=== PATIENT | male | born 1995 | race Hispanic/Latino ===

== ENCOUNTER 2022-11-20 03:39 | Emergency (ER) | payer SELFPAY ==
[2022-11-20] MEDS ORDERED: Lactated Ringer's 2,000 ML ONE (04:07)
[2022-11-20 04:33] LABS: Base Excess-Venous -5.2 mmol/L (-2.0 to 3.0); Bicarbonate (HCO3v) 21.8 mmol/L (22.0-28.0); CO2 Tension (PvCO2) 46.5 mmHg (42.0-51.0); Calcium, Ionized 1.11 mmol/L (1.15-1.33); Chloride 96 mmol/L (98-107); Potassium 5.3 mmol/L (3.5-5.1); Sodium 123 mmol/L (138-145); T. Carbon Dioxide 23.3 mmol/L (22.0-28.0); vO2 Saturation-calc 82.4 % (60.0-85.0)
[2022-11-20 04:39] LABS: #Basophils 0.1 thou/uL (0.0-0.2); #Eosinphils 0.1 thou/uL (0.0-0.7); #Lymphocytes 1.4 thou/uL (1.20-3.40); #Monocytes 0.6 thou/uL (0.11-0.59); %Basophils 1.4 % (0.0-1.0); %Eosinophils 1.3 % (0.0-10.0); %Lymphocytes 19.5 % (21.0-51.0); %Monocytes 8.1 % (0.0-10.0); %Neutrophils 69.7 % (42.0-75.0); Hematocrit 45.4 % (42.0-52.0); Hemoglobin 15.4 g/dL (14.0-18.0); Mean Corpuscular HGB CONC 33.9 g/dL (32.0-36.0); Mean Corpuscular Hemoglobin 33.3 pg (27.0-31.0); Mean Corpuscular Volume 98.1 fl (78.0-98.0); Mean Platelet Volume 8.3 fL (7.4-10.4); Platelet Count 264 10x3/uL (130-400); RBC Distribution Width 11.3 % (11.5-14.5); Red Blood Cell (RBC) Count 4.63 mill/uL (4.70-6.10); White Blood Cell (WBC) Count 7.2 10x3/uL (4.8-10.8)
[2022-11-20 04:43] LABS: ALT (SGPT) 48 U/L (8-55); AST (SGOT) 35 U/L (5-34); Albumin 4.7 g/dL (3.5-5.0); Alkaline Phosphatase 95 U/L (40-110); Anion Gap 23 mmol/L (10-20); BUN (Urea Nitrogen) 21 mg/dL (8.9-20.6); Bilirubin, Total 0.7 mg/dL (0.2-1.2); Calc. Creatinine Clearance 0 mL/min (70-130); Calcium 9.3 mg/dL (7.8-10.44); Carbon Dioxide 19 mmol/L (22-29); Chloride 91 mmol/L (98-107); Estimated GFR 61; Globulin 2.6 g/dL (2.4-3.5); Lipase 10 U/L (8-78); Magnesium 1.5 mg/dL (1.6-2.6); Potassium 5.4 mmol/L (3.5-5.1); Protein, Total 7.3 g/dL (6.0-8.3); Sodium 128 mmol/L (136-145)
[2022-11-20] MEDS ORDERED: Ondansetron PF 4 MG/2 ML Vial ONE (04:50)
[2022-11-20] MEDS ORDERED: Insulin Regular 300 UNITS/3 ML VIAL ONE (04:50)
[2022-11-20] MEDS ORDERED: Magnesium 2 GM/50 ML BAG (IN WATER) ONE (04:50)
[2022-11-20] MEDS ORDERED: INSULIN REGULAR IN 0.9 % NACL 100 UNITS/100 ML BAG ONE (04:53)
[2022-11-20 04:56] LABS: Glucose 688 mg/dL (70-105)
[2022-11-20] MEDS ORDERED: Lactated Ringer's 1,000 ML ONE ×2 (05:12→05:42)
[2022-11-20 05:29] LABS: Troponin I Less than 0.010 ng/mL (< 0.028)
[2022-11-20 05:52] LABS: Bilirubin Negative (Negative); Blood, Urine Negative (Negative); Clarity Clear (Clear); Glucose, Urine (Dipstick) 500 mg/dL (Negative); Ketone, Urine 40 mg/dL (Negative); Leukocyte Negative (Negative); Nitrite Negative (Negative); Protein, Urine (Dipstick) Negative (Neg-Trace); Urobilinogen 0.2 mg/dL (Less than 2)
[2022-11-20 05:59] LABS: CAUTI Indications for Culture Dysuria,urgency,freq; RBC/HPF 0-3 HPF (0-3); Squamous Epithelial 0-3 HPF (0-3); WBC/HPF 0-3 HPF (0-3)
[2022-11-20 06:00] LABS: Bacteria/HPF None Seen HPF (None Seen); Urine Culture Reflex No No
== END 2022-11-20 05:53 | disposition short-term general hospital (02) ==
LOC: MADERS 03:39
DX: E11.10 Type 2 diabetes mellitus with ketoacidosis without coma (principal); N17.9 Acute kidney failure, unspecified; E83.42 Hypomagnesemia; F17.210 Nicotine dependence, cigarettes, uncomplicated; Z79.4 Long term (current) use of insulin
CPT/HCPCS: 36416; 80053; 81001; 82010; 82330; 82803; 83690; 83735; 84484; 85025; 93005; 94760; 96361; 96365; 96368; 96375; J1815; J2405; J3475; J7120